=== PATIENT | male | born 1950 | race Caucasian/White ===

== ENCOUNTER 2017-10-19 08:16 | Emergency (ER) | payer MEDICARE, BC ==
[2017-10-19] MEDS ORDERED: Nitroglycerin 0.4 MG Tab.SL SL PRN (08:28)
[2017-10-19] MEDS ORDERED: Sodium Chloride 0.9% 10 ML Syringe FLUSH PRN (08:28)
[2017-10-19] MEDS ORDERED: Aspirin 81 MG Tab.Chew PO ONE (08:28)
--- NOTE | 2017-10-19 08:33 | EDM.PDOC ---
ED HPI GENERAL MEDICAL PROBLEM - General Chief Complaint: Chest Pain Stated Complaint: SOB/CHEST PAIN/FEELS UNWELL Time Seen by Provider: 10/19/17 08:28 Source of Information: Reports: Patient, Family, RN Notes Reviewed History Limitations: Reports: No Limitations - History of Present Illness INITIAL COMMENTS - FREE TEXT/NARRATIVE: 67-year-old gentleman presents to the emergency department with complaint of chest pain, he has a known history coronary artery disease with stents 4 last in December 2015. For this particular event he states it started with abdominal pain epigastric discomfort around 4 this morning, then spread to his chest with radiations down the left arm. He developed nausea and vomiting and diaphoresis while in the emergency department denies any shortness of breath Chest Pain Score (Numeric/FACES): 4 - Related Data Allergies Allergy/AdvReac Type Severity Reaction Status Date / Time ciprofloxacin Allergy Muscle Verified 10/19/17 08:58 Weakness Home Meds: Home Meds Aspirin 81 mg PO DAILY 12/27/15 [History] Metoprolol Tartrate 12.5 mg PO BID 12/27/15 [History] Nitroglycerin 0.4 mg SL ASDIRECTED 12/27/15 [History] atorvaSTATin [Lipitor] 40 mg PO BEDTIME 12/27/15 [History] Clopidogrel Bisulfate [Clopidogrel] 75 mg PO DAILY 10/19/17 [History] Isosorbide Mononitrate [Isosorbide Mononitrate ER] 15 mg PO BEDTIME 10/19/17 [ History] Isosorbide Mononitrate [Isosorbide Mononitrate ER] 30 mg PO DAILY 10/19/17 [ History] Losartan [Cozaar] 50 mg PO DAILY 10/19/17 [History] Pantoprazole Sodium [Protonix] 20 mg PO DAILY 10/19/17 [History] Sertraline HCl 25 mg PO DAILY 10/19/17 [History] Past Medical History HEENT History: Reports: Impaired Vision Cardiovascular History: Reports: CAD, High Cholesterol, Hypertension, SC - Infectious Disease History Infectious Disease History: Reports: Chicken Pox - Past Surgical History Cardiovascular Surgical History: Reports: Coronary Artery Stent Social & Family History - Tobacco Use Smoking Status *Q: Never Smoker ED ROS GENERAL - Review of Systems Review Of Systems: See Below Constitutional: Reports: Diaphoresis HEENT: Reports: No Symptoms Respiratory: Reports: No Symptoms Cardiovascular: Reports: Chest Pain, Dyspnea on Exertion GI/Abdominal: Reports: Nausea, Vomiting : Reports: No Symptoms Musculoskeletal: Reports: No Symptoms Skin: Reports: No Symptoms Neurological: Reports: No Symptoms ED EXAM, GENERAL - Physical Exam Exam: See Below Free Text/Narrative:: General: Male, moderate discomfort secondary to pain, alert and oriented x3 HEENT: head is atraumatic normocephalic, eyes pupils equal round reactive to light, sclera clear no conjunctivitis appreciated. Ears blocked by cerumen bilaterally. Nose no septal deviation, nares are clear, no blood present. Mouth mucosa is moist and pink no erythema or exudate noted in soft palate, tongue is midline uvula is midline, dentition is intact. Neck: Supple no thyromegaly no tracheal deviation. Nodes: Cervical nodes subclavicular nodes nontender no palpable lymphadenopathy noted. Lungs: clear to auscultation bilaterally with symmetrical respirations, no adventitious noise appreciated. CV: Regular rate and rhythm S1 and S2 appreciated no murmurs rubs or gallops noted. Abdomen: Soft, nontender, no palpable masses or organomegaly appreciated, no distention no guarding bowel sounds are present, . Neuro: Cranial nerves II through XII grossly intact Skin: Warm and dry, intact Extremities: No lower extremity edema appreciated, Course - Vital Signs Last Recorded V/S: Last Vital Signs Temp 96.4 F 10/19/17 08:25 Pulse 52 L 10/19/17 10:20 Resp 14 10/19/17 10:20 BP 178/91 H 10/19/17 10:20 Pulse Ox 98 10/19/17 10:00 - Orders/Labs/Meds Orders: Active Orders 24 hr Category Date Time Status Cardiac Monitoring [RC] .As Directed Care 10/19/17 08:29 Active EKG Documentation Completion [RC] ASDIRECTED Care 10/19/17 08:29 Active Peripheral IV Care [RC] . DIRECTED Care 10/19/17 08:29 Active Heparin Sodium/D5W [Heparin 25,000 Units in D5W 500 ML] Med 10/19/17 10:30 Ordered 25,000 units in 500 ml IV TITRATE Morphine Med 10/19/17 08:28 Active 4 mg IVPUSH Q10M PRN Nitroglycerin 25 MG in D5W @ 10 MCG/MIN(250ml) Premix Med 10/19/17 10:00 Ordered Nitroglycerin/D5W [Nitroglycerin 25 MG/D5W 250 ML] 25 mg in 250 ml IV TITRATE Nitroglycerin [Nitrostat] Med 10/19/17 08:28 Active 0.4 mg SL Q5M PRN Sodium Chloride 0.9% [Normal Saline] 1,000 ml Med 10/19/17 10:15 Ordered IV ASDIRECTED Sodium Chloride 0.9% [Saline Flush] Med 10/19/17 08:28 Active 10 ml FLUSH ASDIRECTED PRN Peripheral IV Insertion Adult [OM.PC] Stat Oth 10/19/17 08:28 Ordered Saline Lock Insert [OM.PC] Stat Oth 10/19/17 08:28 Ordered EKG 12 Lead [EK] Stat Ther 10/19/17 08:29 Ordered Medication Orders Nitroglycerin/Dextrose (Nitroglycerin 25 Mg/D5w 250 Ml) 25 mg in 250 mls @ 6 mls/hr IV TITRATE BENITEZ; Protocol Sodium Chloride (Normal Saline) 1,000 mls @ 125 mls/hr IV ASDIRECTED BENITEZ Last Admin: 10/19/17 10:14 Dose: 125 mls/hr Heparin Sodium/Dextrose (Heparin 25,000 Units In D5w 500 Ml) 25,000 units in 500 mls @ 17.418 mls/hr IV TITRATE BENITEZ; Protocol Morphine Sulfate (Morphine) 4 mg IVPUSH Q10M PRN PRN Reason: Chest Pain Stop: 10/20/17 08:29 Last Admin: 10/19/17 10:14 Dose: 4 mg Admin: 10/19/17 08:42 Dose: 4 mg Nitroglycerin (Nitrostat) 0.4 mg SL Q5M PRN PRN Reason: Chest Pain Stop: 10/20/17 08:29 Last Admin: 10/19/17 08:36 Dose: 0.4 mg Sodium Chloride (Saline Flush) 10 ml FLUSH ASDIRECTED PRN PRN Reason: Keep Vein Open Labs: Laboratory Tests 10/19/17 10/19/17 Range/Units 08:40 08:40 WBC 11.3 H (4.5-11.0) K/uL RBC 5.43 (4.30-5.90) M/uL Hgb 16.1 H (12.0-15.0) g/dL Hct 47.1 (40.0-54.0) % MCV 87 (80-98) fL MCH 30 (27-31) pg MCHC 34 (32-36) % Plt Count 186 (150-400) K/uL Neut % (Auto) 84 H (36-66) % Lymph % (Auto) 11 L (24-44) % [place] % (Auto) 5 (2-6) % Eos % (Auto) 0 L (2-4) % Baso % (Auto) 0 (0-1) % Sodium 139 L (140-148) mmol/L Potassium 3.7 (3.6-5.2) mmol/L Chloride 103 (100-108) mmol/L Carbon Dioxide 23 (21-32) mmol/L Anion Gap 16.7 H (5.0-14.0) mmol/L BUN 23 H (7-18) mg/dL Creatinine 1.1 (0.8-1.3) mg/dL Est Cr Clr Drug Dosing 59.61 mL/min Estimated GFR (MDRD) > 60 (>60) Glucose 126 H (74-106) mg/dL Calcium 8.8 (8.5-10.1) mg/dL Total Bilirubin 0.5 (0.2-1.0) mg/dL AST 23 (15-37) U/L ALT 48 (12-78) U/L Alkaline Phosphatase 87 (46-116) U/L CK-MB (CK-2) 0.7 (0-3.6) mg/mL Troponin I < 0.017 (0.000-0.056) ng/mL Total Protein 7.5 (6.4-8.2) g/dL Albumin 4.2 (3.4-5.0) g/dL Globulin 3.3 (2.3-3.5) g/dL Albumin/Globulin Ratio 1.3 (1.2-2.2) Meds: Medications Generic Name Dose Route Start Last Admin Trade Name Freq PRN Reason Stop Dose Admin Nitroglycerin/Dextrose 25 mg in 250 mls @ 6 mls/hr 10/19/17 10:00 Nitroglycerin 25 Mg/D5w 250 Ml IV TITRATE BENITEZ Protocol 10 MCG/MIN Sodium Chloride 1,000 mls @ 125 mls/hr 10/19/17 10:15 10/19/17 10:14 Normal Saline IV 125 mls/hr ASDIRECTED BENITEZ Administration Heparin Sodium/Dextrose 25,000 units in 500 mls @ 17.418 mls/hr 10/19/17 10: 30 Heparin 25,000 Units In D5w 500 Ml IV TITRATE BENITEZ Protocol 12 UNITS/KG/HR Morphine Sulfate 4 mg 10/19/17 08:28 10/19/17 10:14 Morphine IVPUSH 10/20/17 08:29 4 mg Q10M PRN Administration Chest Pain Nitroglycerin 0.4 mg 10/19/17 08:28 10/19/17 08:36 Nitrostat SL 10/20/17 08:29 0.4 mg Q5M PRN Administration Chest Pain Sodium Chloride 10 ml 10/19/17 08:28 Saline Flush FLUSH ASDIRECTED PRN Keep Vein Open Discontinued Medications Generic Name Dose Route Start Last Admin Trade Name Freq PRN Reason Stop Dose Admin Aspirin 324 mg 10/19/17 08:28 10/19/17 08:37 Aspirin PO 10/19/17 08:29 324 mg ONETIME ONE Administration Heparin Sodium (Porcine) 4,000 units 10/19/17 10:16 Heparin Sodium IVPUSH 10/19/17 10:17 ONETIME ONE Ondansetron HCl 4 mg 10/19/17 09:05 10/19/17 09:12 Zofran IVPUSH 10/19/17 09:06 4 mg ONETIME ONE Administration Departure - Departure Time of Disposition: 10:23 Disposition: DC/Tfer to Acute Hospital 02 Reason for Transfer *Q: Other Condition: Fair Clinical Impression: Unstable angina Referrals: Daniel Shankar DO [Primary Care Provider] - Forms: ED Department Discharge - My Orders Last 24 Hours: My Active Orders 10/19/17 08:28 Morphine 4 mg IVPUSH Q10M PRN Nitroglycerin [Nitrostat] 0.4 mg SL Q5M PRN Sodium Chloride 0.9% [Saline Flush] 10 ml FLUSH ASDIRECTED PRN Peripheral IV Insertion Adult [OM.PC] Stat Saline Lock Insert [OM.PC] Stat 10/19/17 08:29 Cardiac Monitoring [RC] .As Directed EKG Documentation Completion [RC] ASDIRECTED Peripheral IV Care [RC] . DIRECTED EKG 12 Lead [EK] Stat 10/19/17 10:00 Nitroglycerin 25 MG in D5W @ 10 MCG/MIN(250ml) Premix Nitroglycerin/D5W [ Nitroglycerin 25 MG/D5W 250 ML] 25 mg in 250 ml IV TITRATE 10/19/17 10:15 Sodium Chloride 0.9% [Normal Saline] 1,000 ml IV ASDIRECTED 10/19/17 10:30 Heparin Sodium/D5W [Heparin 25,000 Units in D5W 500 ML] 25,000 units in 500 ml IV TITRATE - Assessment/Plan Last 24 Hours: My Active Orders 10/19/17 08:28 Morphine 4 mg IVPUSH Q10M PRN Nitroglycerin [Nitrostat] 0.4 mg SL Q5M PRN Sodium Chloride 0.9% [Saline Flush] 10 ml FLUSH ASDIRECTED PRN Peripheral IV Insertion Adult [OM.PC] Stat Saline Lock Insert [OM.PC] Stat 10/19/17 08:29 Cardiac Monitoring [RC] .As Directed EKG Documentation Completion [RC] ASDIRECTED Peripheral IV Care [RC] . DIRECTED EKG 12 Lead [EK] Stat 10/19/17 10:00 Nitroglycerin 25 MG in D5W @ 10 MCG/MIN(250ml) Premix Nitroglycerin/D5W [ Nitroglycerin 25 MG/D5W 250 ML] 25 mg in 250 ml IV TITRATE 10/19/17 10:15 Sodium Chloride 0.9% [Normal Saline] 1,000 ml IV ASDIRECTED 10/19/17 10:30 Heparin Sodium/D5W [Heparin 25,000 Units in D5W 500 ML] 25,000 units in 500 ml IV TITRATE Plan: Assessment Acuity = acute Site and laterality = unstable angina complicated in a patient with known history coronary artery disease, hypertension and dyslipidemia Etiology = unclear etiology suspicious for coronary artery disease component Manifestations = pain, nausea, vomiting, hypertension Location of injury = Home Lab values = CBC, CMP unremarkable, troponin and CK-MB both negative 1 EKG demonstrates normal sinus rhythm, chest x-ray shows no acute cardiopulmonary process Plan Called discussed case with Dr. Ramirez dynamic etching processor on-call at [facility] kindly accepted the patient in transport he is given a 4000 unit bolus of heparin will be started on a heparin drip in route nitro drip was initiated here pain-free at this time was also given aspirin and 2 mg of morphine and nitroglycerin sublingual 1 This note was dictated using [employer] voice recognition software please call with any questions on syntax or grammar.
[2017-10-19] MEDS: Morphine 4 MG/ML Syringe IVPUSH PRN ×2 (08:42→10:14)
[2017-10-19] MEDS ORDERED: Ondansetron 4 MG/2 ML SDV IVPUSH ONE (09:05)
--- NOTE | 2017-10-19 09:56 | CR ---
CHEST: Portable CLINICAL HISTORY:Chest pain COMPARISON:None FINDINGS: Heart size, pulmonary vascular edema which images are normal. No infiltrate effusion or pn eumothorax is seen. IMPRESSION: No acute cardiopulmonary process
[2017-10-19] MEDS ORDERED: Nitroglycerin/D5W 25 MG/250 ML BOTTLE IV SCH (10:00)
[2017-10-19] MEDS ORDERED: Sodium Chloride 0.9% 1,000 ML IV SCH (10:15)
[2017-10-19] MEDS ORDERED: Heparin Sodium 5,000 Units/ML Vial IVPUSH ONE (10:16)
[2017-10-19] MEDS ORDERED: Heparin Sodium/D5W 25,000 UNITS/500 ML BAG IV SCH (10:30)
[2017-10-19 11:15] VITALS: BP 142/73
== END 2017-10-19 11:45 ==
LOC: JP.ED 08:16
DX: I20.0 Unstable angina (principal); E78.00 Pure hypercholesterolemia, unspecified; I10 Essential (primary) hypertension; Z88.1 Allergy status to other antibiotic agents; Z79.82 Long term (current) use of aspirin; Z79.899 Other long term (current) drug therapy
CPT/HCPCS: 36415; 71045; 71045-26; 80053; 82553; 84484; 85025; 93005; 96365; 96368; 96375; 99284; 99285-25; A9270-GY; J1644; J2270; J2405; J7030

== ENCOUNTER 2021-11-04 09:08 | Emergency (ER) | payer MEDICARE, BC ==
[2021-11-04] MEDS ORDERED: Sodium Chloride 0.9% 10 ML Syringe FLUSH PRN ×2 (09:25→11:51)
[2021-11-04] MEDS ORDERED: HYDROmorphone 0.5 MG/0.5 ML Syringe IVPUSH ONE ×2 (09:26→11:37)
[2021-11-04] MEDS ORDERED: Ondansetron 4 MG/2 ML SDV IVPUSH ONE (09:26)
[2021-11-04] MEDS ORDERED: Pantoprazole 40 MG Vial IVPUSH ONE (09:57)
[2021-11-04] MEDS ORDERED: LORazepam 2 MG/ML SDV IVPUSH ONE (09:57)
[2021-11-04 10:06] LABS: ESTIMATED GFR 81 mL/min (>60)
[2021-11-04 10:15] LABS: TROPONIN I HIGH SENSITIVITY 8.2 pg/mL (<=60.3)
[2021-11-04] MEDS ORDERED: Iopamidol 612 MG/ML 100 ML Bottle IV PRN (11:51)
[2021-11-04] MEDS ORDERED: Sodium Chloride 0.9% 50 ML IV ONE (11:51)
[2021-11-04] MEDS ORDERED: HYDROmorphone 1 MG/ML Syringe IVPUSH ONE (13:16)
[2021-11-04] MEDS ORDERED: Losartan 50 MG Tab PO ONE (13:19)
[2021-11-04] MEDS ORDERED: Metoprolol Tartrate 25 MG Tab PO ONE (13:20)
[2021-11-04] MEDS ORDERED: Sodium Chloride 0.9% 1,000 ML IV SCH (13:30)
[2021-11-04 14:46] VITALS: BP 148/56; PULSE 99
[2021-11-04] MEDS ORDERED: Prochlorperazine 10 MG/2 ML SDV IVPUSH ONE (14:46)
== END 2021-11-04 16:08 | disposition home or self-care (01) ==
LOC: JP.ED 09:08
DX: K85.00 Idiopathic acute pancreatitis without necrosis or infection (principal); I25.2 Old myocardial infarction; I10 Essential (primary) hypertension; I25.10 Atherosclerotic heart disease of native coronary artery without angina pectoris; M19.90 Unspecified osteoarthritis, unspecified site; Z79.82 Long term (current) use of aspirin; Z79.899 Other long term (current) drug therapy; Z88.1 Allergy status to other antibiotic agents
CPT/HCPCS: 36415; 74177; 80053; 81001; 82150; 83690; 84484; 85025; 86140; 93005; 96361; 96374; 96375; 96376; 99285; A9270; C9113; J1170; J2405; J3490; J7030; Q9967; 99283